=== PATIENT | male | born 1970 | race African-American/Black ===

== ENCOUNTER 2017-08-17 04:49 | Emergency (ER) | payer OTHER ==
[~2017-08-17] VITALS: Ht 182.9 cm; Wt 75.0 kg
[2017-08-17] MEDS ORDERED: LORAZEPAM 2MG/ML CPJ ONE (05:42)
[2017-08-17] MEDS ORDERED: SODIUM CHLORIDE 0.9% 1,000 ML IV ONE (06:04)
[2017-08-17 06:23] LABS: BASOPHILS % 0.5 % (0.0-2.0); EOSINOPHILS % 0.7 % (0.0-5.0); HEMATOCRIT. 44.7 % (42.0-52.0); HEMOGLOBIN. 15.5 g/dL (14.0-18.0); LYMPHOCYTES % 22.5 % (20.0-50.0); MEAN CORPUSCULAR HEMOGLOBIN 31.5 pg (28.0-32.0); MEAN CORPUSCULAR VOLUME 90.9 fL (80.0-94.0); MEAN PLATELET VOLUME 8.5 fl (7.4-10.4); MONOCYTES % 4.2 % (2.0-8.0); NEUTROPHILS % 72.1 % (40.0-76.0); PLATELET 228 x1000/uL (130-400); RED BLOOD CELL COUNT 4.92 mill/uL (4.7-6.1); RED CELL DISTRIBUTION WIDTH 12.3 % (11.6-14.6)
[2017-08-17 06:40] LABS: BETA HYDROXYBUTYRATE 0.3 mMol/L (0.0-0.3); CARBON DIOXIDE 21 mEq/L (21-32); CHLORIDE 102 mEq/L (98-107)
[2017-08-17 06:46] LABS: ETHANOL BLOOD 309 mg/dL
[2017-08-17 08:28] VITALS: BP 128/79
== END 2017-08-17 08:39 | disposition left against medical advice (07) ==
LOC: ER 04:49 → EDBD 04:49 → ER 08:39
DX: T51.0X1A Toxic effect of ethanol, accidental (unintentional), initial encounter (principal); G92 Toxic encephalopathy; E86.0 Dehydration; F91.9 Conduct disorder, unspecified; Z78.1 Physical restraint status; E11.65 Type 2 diabetes mellitus with hyperglycemia; Y92.488 Other paved roadways as the place of occurrence of the external cause
CPT/HCPCS: 36415; 80048; 80307; 80329; 82010; 84443; 85025; 96360; 99284; G0482; J2060; J7030; Z7610